=== PATIENT | female | born 1990 | race Two or more races ===

== ENCOUNTER 2020-11-17 11:04 | Inpatient (IN) | payer OTHER ==
[2020-11-17 12:13] VITALS: BMI 24.5
[2020-11-17] MEDS ORDERED: MAGNESIUM HYDROX 2400MG/30ML ORAL SUSPENSION 30 ML CUP PO PRN (12:55)
[2020-11-17] MEDS ORDERED: BISMUTH SUBSALICYLATE 524 MG/30 ML UD PO PRN (12:55)
[2020-11-17] MEDS ORDERED: NICOTINE POLACRILEX 2 MG GUM BUC PRN (12:55)
[2020-11-17] MEDS ORDERED: MENTHOL/PHENOL 1 EACH UD MM PRN (12:55)
[2020-11-17] MEDS ORDERED: LORazepam 1 MG TABLET PO PRN (12:55)
[2020-11-17] MEDS ORDERED: IBUPROFEN 400 MG TABLET (FP) PO PRN (12:55)
[2020-11-17] MEDS ORDERED: MAGNESIUM CITRATE 300 ML BOTTLE PO PRN (12:55)
[2020-11-17] MEDS ORDERED: MAG HYDROX/AL HYDROX/SIMETH 30 ML UNIT-DOSE CUP PO PRN (12:55)
[2020-11-17] MEDS ORDERED: METHOCARBAMOL 500 MG TABLET PO PRN (12:55)
[2020-11-17] MEDS ORDERED: ONDANSETRON *ODT* 4 MG TABLET SL PRN (12:55)
[2020-11-17] MEDS ORDERED: ACETAMINOPHEN 325 MG TABLET (FP) PO PRN ×2 (12:55)
[2020-11-17] MEDS ORDERED: LISINOPRIL 10 MG TABLET PO ONE (13:30)
[2020-11-17] MEDS: NICOTINE 14 MG/24 HOURS TOPICAL PATCH TD SCH (13:54)
[2020-11-17] MEDS: hydrOXYzine PAMOATE 25 MG CAPSULE (FP) PO SCH ×3 (14:00→23:04)
[2020-11-17 17:14] LABS: HEMATOCRIT 32.4 % (32.4-45.2); HEMOGLOBIN 10.6 GM/dL (10.7-15.3); MCH 31.6 pg (25.7-33.7); MCHC 32.7 g/dl (32.0-36.0); MEAN CELL VOLUME 96.6 fl (80-96); MEAN PLT VOLUME 8.2 fl (7.5-11.1); PLATELET COUNT 256 K/MM3 (134-434); RBC 3.36 M/mm3 (3.60-5.2); RDW 17.2 % (11.6-15.6); WHITE BLOOD COUNT 4.5 K/mm3 (4.0-10.0)
[2020-11-17 17:20] LABS: POTASSIUM 3.3 mmol/L (3.5-5.1)
[2020-11-17 17:26] LABS: ALBUMIN 3.2 g/dl (3.4-5.0); CALCIUM 7.9 mg/dL (8.5-10.1)
[2020-11-17 17:27] LABS: BLOOD UREA NITROGEN 7.8 mg/dL (7-18)
[2020-11-17 17:30] LABS: BILIRUBIN,TOTAL 0.5 mg/dL (0.2-1); CREATININE 0.7 mg/dL (0.55-1.3); TOT PROT 6.6 g/dl (6.4-8.2)
[2020-11-17] MEDS: LORazepam 2 MG TABLET PO SCH ×2 (17:49→23:03)
[2020-11-17] MEDS: THIAMINE HCL 100 MG TABLET (FP) PO SCH (23:03)
[2020-11-17] MEDS: MELATONIN 5 MG TABLETS PO SCH (23:04)
[2020-11-18] MEDS: LORazepam 2 MG TABLET PO SCH ×4 (05:46→22:24)
[2020-11-18] MEDS: hydrOXYzine PAMOATE 25 MG CAPSULE (FP) PO SCH ×5 (05:47→22:24)
[2020-11-18] MEDS: PRENATAL VITAMINS W/ FOLIC ACID TABLET (FP) PO SCH (10:28)
[2020-11-18] MEDS: NICOTINE 14 MG/24 HOURS TOPICAL PATCH TD SCH (10:28)
[2020-11-18] MEDS ORDERED: PNEUMOC 13-VAL CONJ-DIP CRM/PF 0.5 ML DISP.SYRIN IM ONE (12:00)
[2020-11-18] MEDS ORDERED: PNEUMOCOCCAL 23 VACCINE 0.5 ML VIAL IM ONE (12:00)
[2020-11-18] MEDS ORDERED: FLU VACCINE (FLULAVAL) PF 60 MCG/0.5 ML SYRINGE 2020-2021 IM ONE (12:00)
[2020-11-18] MEDS ORDERED: POTASSIUM CHLORIDE ORAL LIQUID 20 MEQ/15 ML PO ONE ×3 (13:45→17:30)
[2020-11-18] MEDS: FERROUS SO4 325 MG TABLET (FP) PO SCH (14:21)
[2020-11-18] MEDS: THIAMINE HCL 100 MG TABLET (FP) PO SCH (22:24)
[2020-11-18] MEDS: MELATONIN 5 MG TABLETS PO SCH (22:24)
[2020-11-19] MEDS: LORazepam 1 MG TABLET PO SCH ×4 (05:52→22:25)
[2020-11-19] MEDS: hydrOXYzine PAMOATE 25 MG CAPSULE (FP) PO SCH ×5 (05:53→22:25)
[2020-11-19] MEDS: FERROUS SO4 325 MG TABLET (FP) PO SCH (07:16)
[2020-11-19] MEDS: PRENATAL VITAMINS W/ FOLIC ACID TABLET (FP) PO SCH (10:38)
[2020-11-19] MEDS: NICOTINE 14 MG/24 HOURS TOPICAL PATCH TD SCH (10:47)
[2020-11-19] MEDS: MELATONIN 5 MG TABLETS PO SCH (22:24)
[2020-11-19] MEDS: THIAMINE HCL 100 MG TABLET (FP) PO SCH (22:24)
[2020-11-20] MEDS ORDERED: LORazepam 0.5 MG TABLET PO PRN
[2020-11-20] MEDS: LORazepam 0.5 MG TABLET PO SCH ×4 (06:24→22:14)
[2020-11-20] MEDS: hydrOXYzine PAMOATE 25 MG CAPSULE (FP) PO SCH ×5 (06:25→22:14)
[2020-11-20] MEDS: FERROUS SO4 325 MG TABLET (FP) PO SCH (07:06)
[2020-11-20] MEDS: PRENATAL VITAMINS W/ FOLIC ACID TABLET (FP) PO SCH (10:31)
[2020-11-20] MEDS: NICOTINE 14 MG/24 HOURS TOPICAL PATCH TD SCH (11:03)
[2020-11-20] MEDS: MELATONIN 5 MG TABLETS PO SCH (22:14)
[2020-11-20] MEDS: THIAMINE HCL 100 MG TABLET (FP) PO SCH (22:14)
[2020-11-21] MEDS ORDERED: LORazepam 0.5 MG TABLET PO ONE (05:00)
[2020-11-21] MEDS: hydrOXYzine PAMOATE 25 MG CAPSULE (FP) PO SCH ×3 (07:08→13:03)
[2020-11-21] MEDS: FERROUS SO4 325 MG TABLET (FP) PO SCH (08:30)
[2020-11-21] MEDS: PRENATAL VITAMINS W/ FOLIC ACID TABLET (FP) PO SCH (10:33)
[2020-11-21] MEDS: NICOTINE 14 MG/24 HOURS TOPICAL PATCH TD SCH (10:33)
[2020-11-21 14:16] VITALS: BP 145/79; PULSE 73; TEMP 97.5
== END 2020-11-21 14:47 | disposition other institution (70) | DRG 774 ==
LOC: YASAS 11:04 → Y6N 12:27
PROVIDERS: ADMIT Allergy & Immunology; ATTEND Allergy & Immunology
PROC: HZ2ZZZZ Detoxification Services for Substance Abuse Treatment (ICD-10-PCS; principal; 2020-11-17)
DX: F10.230 Alcohol dependence with withdrawal, uncomplicated (principal); F14.20 Cocaine dependence, uncomplicated; F17.210 Nicotine dependence, cigarettes, uncomplicated; F10.24 Alcohol dependence with alcohol-induced mood disorder; D64.9 Anemia, unspecified; E83.51 Hypocalcemia; G47.00 Insomnia, unspecified; I10 Essential (primary) hypertension; Z91.5 Personal history of self-harm
CPT/HCPCS: 36415; 80053; 81025; 84132; 85027; 86780; 87389; 90732; 93005; 93010; C9803; G0008; G0009; Q2036; U0003

== ENCOUNTER 2020-11-21 15:03 | Inpatient (IN) | payer OTHER ==
[2020-11-21] MEDS ORDERED: MAGNESIUM CITRATE 300 ML BOTTLE PO PRN (15:34)
[2020-11-21] MEDS ORDERED: MAGNESIUM HYDROX 2400MG/30ML ORAL SUSPENSION 30 ML CUP PO PRN (15:34)
[2020-11-21] MEDS ORDERED: NICOTINE POLACRILEX 2 MG GUM BUC PRN (15:34)
[2020-11-21] MEDS ORDERED: ACETAMINOPHEN 325 MG TABLET (FP) PO PRN (15:34)
[2020-11-21] MEDS ORDERED: IBUPROFEN 400 MG TABLET (FP) PO PRN (15:34)
[2020-11-21] MEDS ORDERED: LOPERAMIDE HCL 2 MG CAPSULE PO PRN (15:34)
[2020-11-21] MEDS ORDERED: MAG HYDROX/AL HYDROX/SIMETH 30 ML UNIT-DOSE CUP PO PRN (15:34)
[2020-11-21] MEDS ORDERED: MENTHOL/PHENOL 1 EACH UD MM PRN (15:34)
[2020-11-21] MEDS: THIAMINE HCL 100 MG TABLET (FP) PO SCH (21:50)
[2020-11-21] MEDS: MELATONIN 5 MG TABLETS PO SCH (21:50)
[2020-11-21] MEDS: CALCIUM 500MG/VIT-D 200 UNITS COMBO TABLET (FP) PO SCH (21:50)
[2020-11-22] MEDS: PRENATAL VITAMINS W/ FOLIC ACID TABLET (FP) PO SCH (10:14)
[2020-11-22] MEDS: CALCIUM 500MG/VIT-D 200 UNITS COMBO TABLET (FP) PO SCH ×2 (10:14→21:16)
[2020-11-22] MEDS: NICOTINE 14 MG/24 HOURS TOPICAL PATCH TD SCH (10:15)
[2020-11-22] MEDS: THIAMINE HCL 100 MG TABLET (FP) PO SCH (21:16)
[2020-11-22] MEDS: MELATONIN 5 MG TABLETS PO SCH (21:16)
[2020-11-23] MEDS: NICOTINE 14 MG/24 HOURS TOPICAL PATCH TD SCH (10:38)
[2020-11-23] MEDS: PRENATAL VITAMINS W/ FOLIC ACID TABLET (FP) PO SCH (10:38)
[2020-11-23] MEDS: CALCIUM 500MG/VIT-D 200 UNITS COMBO TABLET (FP) PO SCH ×2 (10:38→21:30)
[2020-11-23] MEDS: MELATONIN 5 MG TABLETS PO SCH (21:30)
[2020-11-23] MEDS: THIAMINE HCL 100 MG TABLET (FP) PO SCH (21:30)
[2020-11-24] MEDS: NICOTINE 14 MG/24 HOURS TOPICAL PATCH TD SCH (10:58)
[2020-11-24] MEDS: CALCIUM 500MG/VIT-D 200 UNITS COMBO TABLET (FP) PO SCH ×2 (10:58→21:01)
[2020-11-24] MEDS: PRENATAL VITAMINS W/ FOLIC ACID TABLET (FP) PO SCH (10:59)
[2020-11-24] MEDS: THIAMINE HCL 100 MG TABLET (FP) PO SCH (21:01)
[2020-11-24] MEDS: MELATONIN 5 MG TABLETS PO SCH (21:01)
[2020-11-25] MEDS: CALCIUM 500MG/VIT-D 200 UNITS COMBO TABLET (FP) PO SCH ×2 (10:55→21:19)
[2020-11-25] MEDS: PRENATAL VITAMINS W/ FOLIC ACID TABLET (FP) PO SCH (10:55)
[2020-11-25] MEDS: NICOTINE 14 MG/24 HOURS TOPICAL PATCH TD SCH (10:55)
[2020-11-25] MEDS: MELATONIN 5 MG TABLETS PO SCH (21:19)
[2020-11-25] MEDS: THIAMINE HCL 100 MG TABLET (FP) PO SCH (21:19)
[2020-11-26] MEDS: PRENATAL VITAMINS W/ FOLIC ACID TABLET (FP) PO SCH (10:32)
[2020-11-26] MEDS: CALCIUM 500MG/VIT-D 200 UNITS COMBO TABLET (FP) PO SCH (10:32)
[2020-11-26] MEDS: NICOTINE 14 MG/24 HOURS TOPICAL PATCH TD SCH (10:33)
[2020-11-26] MEDS: MELATONIN 5 MG TABLETS PO SCH (21:27)
[2020-11-26] MEDS: THIAMINE HCL 100 MG TABLET (FP) PO SCH (21:27)
[2020-11-27] MEDS: PRENATAL VITAMINS W/ FOLIC ACID TABLET (FP) PO SCH (10:22)
[2020-11-27] MEDS: NICOTINE 14 MG/24 HOURS TOPICAL PATCH TD SCH (10:22)
[2020-11-27] MEDS: THIAMINE HCL 100 MG TABLET (FP) PO SCH (21:16)
[2020-11-27] MEDS: MELATONIN 5 MG TABLETS PO SCH (21:16)
[2020-11-28] MEDS: NICOTINE 14 MG/24 HOURS TOPICAL PATCH TD SCH (10:39)
[2020-11-28] MEDS: PRENATAL VITAMINS W/ FOLIC ACID TABLET (FP) PO SCH (10:39)
[2020-11-28] MEDS: MELATONIN 5 MG TABLETS PO SCH (21:13)
[2020-11-28] MEDS: THIAMINE HCL 100 MG TABLET (FP) PO SCH (21:13)
[2020-11-29] MEDS ORDERED: PT OWN MED DRAWER 7, Y5N ONE (08:48)
[2020-11-29] MEDS: PRENATAL VITAMINS W/ FOLIC ACID TABLET (FP) PO SCH (10:22)
[2020-11-29] MEDS: NICOTINE 14 MG/24 HOURS TOPICAL PATCH TD SCH (10:22)
[2020-11-29] MEDS: MELATONIN 5 MG TABLETS PO SCH (21:19)
[2020-11-29] MEDS: THIAMINE HCL 100 MG TABLET (FP) PO SCH (21:19)
[2020-11-30] MEDS: PRENATAL VITAMINS W/ FOLIC ACID TABLET (FP) PO SCH (10:40)
[2020-11-30] MEDS: NICOTINE 14 MG/24 HOURS TOPICAL PATCH TD SCH (10:40)
[2020-11-30] MEDS: THIAMINE HCL 100 MG TABLET (FP) PO SCH (21:24)
[2020-11-30] MEDS: MELATONIN 5 MG TABLETS PO SCH (21:24)
[2020-12-01] MEDS: PRENATAL VITAMINS W/ FOLIC ACID TABLET (FP) PO SCH (10:15)
[2020-12-01] MEDS: NICOTINE 14 MG/24 HOURS TOPICAL PATCH TD SCH (10:15)
[2020-12-01] MEDS: THIAMINE HCL 100 MG TABLET (FP) PO SCH (21:23)
[2020-12-01] MEDS: MELATONIN 5 MG TABLETS PO SCH (21:23)
[2020-12-02] MEDS: NICOTINE 14 MG/24 HOURS TOPICAL PATCH TD SCH (10:16)
[2020-12-02] MEDS: PRENATAL VITAMINS W/ FOLIC ACID TABLET (FP) PO SCH (10:16)
[2020-12-02] MEDS: THIAMINE HCL 100 MG TABLET (FP) PO SCH (21:16)
[2020-12-02] MEDS: MELATONIN 5 MG TABLETS PO SCH (21:16)
[2020-12-03] MEDS: NICOTINE 14 MG/24 HOURS TOPICAL PATCH TD SCH (10:28)
[2020-12-03] MEDS: PRENATAL VITAMINS W/ FOLIC ACID TABLET (FP) PO SCH (10:28)
[2020-12-03] MEDS: MELATONIN 5 MG TABLETS PO SCH (21:29)
[2020-12-03] MEDS: THIAMINE HCL 100 MG TABLET (FP) PO SCH (21:29)
[2020-12-04] MEDS: PRENATAL VITAMINS W/ FOLIC ACID TABLET (FP) PO SCH (11:12)
[2020-12-04] MEDS: NICOTINE 14 MG/24 HOURS TOPICAL PATCH TD SCH (11:12)
[2020-12-04 20:44] VITALS: TEMP 96.8
[2020-12-04 20:51] VITALS: BP 162/96; PULSE 94
== END 2020-12-04 21:10 | disposition left against medical advice (07) | DRG 770 ==
LOC: YASAS 15:03 → Y3W 15:05
PROVIDERS: ADMIT Allergy & Immunology; ATTEND Allergy & Immunology
PROC: HZ42ZZZ Group Counseling for Substance Abuse Treatment, Cognitive-Behavioral (ICD-10-PCS; principal; 2020-11-21)
DX: F10.20 Alcohol dependence, uncomplicated (principal); F14.20 Cocaine dependence, uncomplicated; F17.210 Nicotine dependence, cigarettes, uncomplicated; F10.24 Alcohol dependence with alcohol-induced mood disorder; I10 Essential (primary) hypertension
CPT/HCPCS: 36415; 87389; C9803; U0003

== ENCOUNTER 2020-12-25 13:40 | Inpatient (IN) | payer OTHER ==
[2020-12-25] MEDS ORDERED: cloNIDine HCL 0.1 MG TABLET PO ONE (19:13)
[2020-12-25] MEDS ORDERED: NICOTINE POLACRILEX 2 MG GUM BUC PRN (19:16)
[2020-12-25] MEDS ORDERED: ONDANSETRON *ODT* 4 MG TABLET SL PRN (19:16)
[2020-12-25] MEDS ORDERED: IBUPROFEN 400 MG TABLET (FP) PO PRN (19:16)
[2020-12-25] MEDS ORDERED: chlordiazePOXIDE HCL 25 MG CAPSULE PO PRN (19:16)
[2020-12-25] MEDS ORDERED: MAGNESIUM HYDROX 2400MG/30ML ORAL SUSPENSION 30 ML CUP PO PRN (19:16)
[2020-12-25] MEDS ORDERED: chlordiazePOXIDE HCL 25 MG CAPSULE PO ONE ×2 (19:16→21:20)
[2020-12-25] MEDS ORDERED: ACETAMINOPHEN 325 MG TABLET (FP) PO PRN ×2 (19:16)
[2020-12-25] MEDS ORDERED: MAGNESIUM CITRATE 300 ML BOTTLE PO PRN (19:16)
[2020-12-25] MEDS ORDERED: MAG HYDROX/AL HYDROX/SIMETH 30 ML UNIT-DOSE CUP PO PRN (19:16)
[2020-12-25] MEDS ORDERED: MENTHOL/PHENOL 1 EACH UD MM PRN (19:16)
[2020-12-25] MEDS ORDERED: cloNIDine HCL 0.1 MG TABLET ONE (21:15)
[2020-12-25] MEDS ORDERED: chlordiazePOXIDE HCL 25 MG CAPSULE ONE ×2 (21:15→21:18)
[2020-12-26] MEDS: chlordiazePOXIDE HCL 25 MG CAPSULE PO SCH ×5 (00:21→22:36)
[2020-12-26] MEDS: THIAMINE HCL 100 MG TABLET (FP) PO SCH ×2 (01:48→22:36)
[2020-12-26] MEDS: MELATONIN 5 MG TABLETS PO SCH ×2 (01:51→22:36)
[2020-12-26] MEDS: BISMUTH SUBSALICYLATE 524 MG/30 ML UD PO PRN (09:29)
[2020-12-26] MEDS: PRENATAL VITAMINS W/ FOLIC ACID TABLET (FP) PO SCH (10:21)
[2020-12-26] MEDS: NICOTINE 14 MG/24 HOURS TOPICAL PATCH TD SCH (10:21)
[2020-12-26] MEDS: amLODIPine BESYLATE 5 MG TABLET (FP) PO SCH (10:21)
[2020-12-26 10:30] LABS: POTASSIUM 3.4 mmol/L (3.5-5.1)
[2020-12-26 10:31] LABS: HEMATOCRIT 31.4 % (32.4-45.2); HEMOGLOBIN 10.3 GM/dL (10.7-15.3); MCH 29.1 pg (25.7-33.7); MCHC 32.9 g/dl (32.0-36.0); MEAN CELL VOLUME 88.6 fl (80-96); MEAN PLT VOLUME 7.9 fl (7.5-11.1); PLATELET COUNT 220 K/MM3 (134-434); RBC 3.55 M/mm3 (3.60-5.2); RDW 17.4 % (11.6-15.6); WHITE BLOOD COUNT 4.2 K/mm3 (4.0-10.0)
[2020-12-26 10:38] LABS: CALCIUM 8.5 mg/dL (8.5-10.1)
[2020-12-26 10:39] LABS: ALBUMIN 3.4 g/dl (3.4-5.0); BLOOD UREA NITROGEN 12.4 mg/dL (7-18)
[2020-12-26 10:41] LABS: CREATININE 0.8 mg/dL (0.55-1.3)
[2020-12-26 10:43] LABS: BILIRUBIN,TOTAL 0.7 mg/dL (0.2-1); TOT PROT 7.2 g/dl (6.4-8.2)
[2020-12-26] MEDS ORDERED: POTASSIUM CHLORIDE TABS 20 MEQ TABLET.ER (FP) PO ONE (13:32)
[2020-12-27] MEDS: chlordiazePOXIDE HCL 25 MG CAPSULE PO SCH ×4 (05:41→22:55)
[2020-12-27] MEDS: PRENATAL VITAMINS W/ FOLIC ACID TABLET (FP) PO SCH (10:28)
[2020-12-27] MEDS: amLODIPine BESYLATE 5 MG TABLET (FP) PO SCH (10:29)
[2020-12-27] MEDS: BISMUTH SUBSALICYLATE 524 MG/30 ML UD PO PRN (10:30)
[2020-12-27] MEDS: NICOTINE 14 MG/24 HOURS TOPICAL PATCH TD SCH (10:30)
[2020-12-27] MEDS: METHOCARBAMOL 500 MG TABLET PO PRN (18:15)
[2020-12-27] MEDS: THIAMINE HCL 100 MG TABLET (FP) PO SCH (22:54)
[2020-12-27] MEDS: MELATONIN 5 MG TABLETS PO SCH (22:54)
[2020-12-28] MEDS ORDERED: chlordiazePOXIDE HCL 10 MG CAPSULE PO PRN
[2020-12-28] MEDS: chlordiazePOXIDE HCL 10 MG CAPSULE PO SCH ×4 (06:08→22:36)
[2020-12-28] MEDS: PRENATAL VITAMINS W/ FOLIC ACID TABLET (FP) PO SCH (10:22)
[2020-12-28] MEDS: amLODIPine BESYLATE 5 MG TABLET (FP) PO SCH (10:23)
[2020-12-28] MEDS: NICOTINE 14 MG/24 HOURS TOPICAL PATCH TD SCH (10:26)
[2020-12-28] MEDS: FERROUS SO4 325 MG TABLET (FP) PO SCH ×2 (12:01→18:12)
[2020-12-28 22:18] LABS: URINE APPEARANCE CLEAR; URINE BILIRUBIN NEGATIVE (NEGATIVE); URINE COLOR YELLOW; URINE GLUCOSE (UA) NEGATIVE (NEGATIVE); URINE KETONE NEGATIVE (NEGATIVE); URINE LEUK ESTERASE NEGATIVE (NEGATIVE); URINE NITRITE NEGATIVE (NEGATIVE); URINE PROTEIN NEGATIVE (NEGATIVE); URINE UROBILINOGEN 0.2 mg/dL (0.2-1.0)
[2020-12-28] MEDS: MELATONIN 5 MG TABLETS PO SCH (22:36)
[2020-12-28] MEDS: METHOCARBAMOL 500 MG TABLET PO PRN (22:36)
[2020-12-28] MEDS: THIAMINE HCL 100 MG TABLET (FP) PO SCH (22:36)
[2020-12-29] MEDS: chlordiazePOXIDE HCL 10 MG CAPSULE PO SCH ×2 (05:36→17:54)
[2020-12-29] MEDS: FERROUS SO4 325 MG TABLET (FP) PO SCH ×3 (07:33→17:54)
[2020-12-29] MEDS ORDERED: MELATONIN 5 MG TABLETS PO SCH (09:21)
[2020-12-29] MEDS: PRENATAL VITAMINS W/ FOLIC ACID TABLET (FP) PO SCH (09:57)
[2020-12-29] MEDS: NICOTINE 14 MG/24 HOURS TOPICAL PATCH TD SCH (09:58)
[2020-12-29] MEDS: amLODIPine BESYLATE 5 MG TABLET (FP) PO SCH (09:58)
[2020-12-29] MEDS: METHOCARBAMOL 500 MG TABLET PO PRN ×2 (09:58→22:31)
[2020-12-29 12:06] LABS: BASO % 0.4 % (0-2.0); EOS % 0.8 % (0-4.5); HEMATOCRIT 31.2 % (32.4-45.2); HEMOGLOBIN 10.4 GM/dL (10.7-15.3); LYMPH % 33.2 % (8-40); MCH 29.6 pg (25.7-33.7); MCHC 33.3 g/dl (32.0-36.0); MEAN PLT VOLUME 7.9 fl (7.5-11.1); MONO % 8.6 % (3.8-10.2); PLATELET COUNT 247 K/MM3 (134-434); RBC 3.51 M/mm3 (3.60-5.2); RDW 18.2 % (11.6-15.6); WHITE BLOOD COUNT 7.7 K/mm3 (4.0-10.0)
[2020-12-29] MEDS: THIAMINE HCL 100 MG TABLET (FP) PO SCH (22:30)
[2020-12-30] MEDS ORDERED: chlordiazePOXIDE HCL 10 MG CAPSULE PO ONE (05:00)
[2020-12-30] MEDS: METHOCARBAMOL 500 MG TABLET PO PRN (05:40)
[2020-12-30] MEDS: FERROUS SO4 325 MG TABLET (FP) PO SCH ×2 (07:18→11:46)
[2020-12-30] MEDS: NICOTINE 14 MG/24 HOURS TOPICAL PATCH TD SCH (09:37)
[2020-12-30] MEDS: PRENATAL VITAMINS W/ FOLIC ACID TABLET (FP) PO SCH (09:37)
[2020-12-30] MEDS: amLODIPine BESYLATE 5 MG TABLET (FP) PO SCH (09:37)
[2020-12-30 13:06] VITALS: BP 131/81; PULSE 100; TEMP 97
== END 2020-12-30 14:17 | disposition other institution (70) | DRG 774 ==
LOC: YASAS 13:40 → Y3N 20:37
PROVIDERS: ADMIT Allergy & Immunology; ATTEND Allergy & Immunology
PROC: HZ2ZZZZ Detoxification Services for Substance Abuse Treatment (ICD-10-PCS; principal; 2020-12-25)
DX: F10.230 Alcohol dependence with withdrawal, uncomplicated (principal); F14.20 Cocaine dependence, uncomplicated; F17.210 Nicotine dependence, cigarettes, uncomplicated; F19.24 Other psychoactive substance dependence with psychoactive substance-induced mood disorder; F10.24 Alcohol dependence with alcohol-induced mood disorder; F32.9 Major depressive disorder, single episode, unspecified; D64.9 Anemia, unspecified; E87.6 Hypokalemia; I10 Essential (primary) hypertension
CPT/HCPCS: 36415; 80053; 81003; 84132; 85025; 85027; 86780; 93005; 93010; C9803; J0735; U0003

== ENCOUNTER 2020-12-30 14:00 | Inpatient (IN) | payer OTHER ==
[2020-12-30] MEDS ORDERED: P-EPHED 60MG/TRIPROLIDI 2.5MG TABLET PO PRN (15:20)
[2020-12-30] MEDS ORDERED: IBUPROFEN 400 MG TABLET (FP) PO PRN (15:20)
[2020-12-30] MEDS ORDERED: MENTHOL/PHENOL 1 EACH UD MM PRN (15:20)
[2020-12-30] MEDS ORDERED: ACETAMINOPHEN 325 MG TABLET (FP) PO PRN (15:20)
[2020-12-30] MEDS ORDERED: MAGNESIUM HYDROX 2400MG/30ML ORAL SUSPENSION 30 ML CUP PO PRN (15:20)
[2020-12-30] MEDS ORDERED: MAGNESIUM CITRATE 300 ML BOTTLE PO PRN (15:20)
[2020-12-30] MEDS ORDERED: MAG HYDROX/AL HYDROX/SIMETH 30 ML UNIT-DOSE CUP PO PRN (15:20)
[2020-12-30] MEDS ORDERED: LOPERAMIDE HCL 2 MG CAPSULE PO PRN (15:20)
[2020-12-30] MEDS ORDERED: guaiFENesin 200 MG/10 ML 10 ML UNIT-DOSE CUPS PO PRN (15:20)
[2020-12-30] MEDS: FERROUS SO4 325 MG TABLET (FP) PO SCH (21:15)
[2020-12-30] MEDS: MELATONIN 5 MG TABLETS PO SCH (21:15)
[2020-12-30] MEDS: THIAMINE HCL 100 MG TABLET (FP) PO SCH (21:15)
[2020-12-30] MEDS: TOLNAFTATE 1% CREAM 15 GM TUBE TP SCH (21:15)
[2020-12-30] MEDS: hydrOXYzine PAMOATE 25 MG CAPSULE (FP) PO PRN (21:15)
[2020-12-31] MEDS: FERROUS SO4 325 MG TABLET (FP) PO SCH ×3 (06:31→21:18)
[2020-12-31] MEDS: PRENATAL VITAMINS W/ FOLIC ACID TABLET (FP) PO SCH (10:02)
[2020-12-31] MEDS: NICOTINE 14 MG/24 HOURS TOPICAL PATCH TD SCH (10:02)
[2020-12-31] MEDS: amLODIPine BESYLATE 5 MG TABLET (FP) PO SCH (10:02)
[2020-12-31] MEDS: TOLNAFTATE 1% CREAM 15 GM TUBE TP SCH ×2 (10:02→21:20)
[2020-12-31] MEDS: hydrOXYzine PAMOATE 25 MG CAPSULE (FP) PO PRN ×2 (11:53→21:18)
[2020-12-31] MEDS: MELATONIN 5 MG TABLETS PO SCH (21:18)
[2020-12-31] MEDS: THIAMINE HCL 100 MG TABLET (FP) PO SCH (21:18)
[2020-12-31] MEDS ORDERED: PT OWN MED DRAWER 7, Y5N ONE (21:19)
[2020-12-31] MEDS: traZODone HCL 50 MG TABLET (FP) PO SCH (21:20)
[2021-01-01] MEDS: FERROUS SO4 325 MG TABLET (FP) PO SCH ×3 (06:19→22:00)
[2021-01-01] MEDS: PRENATAL VITAMINS W/ FOLIC ACID TABLET (FP) PO SCH (09:56)
[2021-01-01] MEDS: amLODIPine BESYLATE 5 MG TABLET (FP) PO SCH (09:56)
[2021-01-01] MEDS: NICOTINE 14 MG/24 HOURS TOPICAL PATCH TD SCH (09:57)
[2021-01-01] MEDS: TOLNAFTATE 1% CREAM 15 GM TUBE TP SCH ×2 (09:59→22:01)
[2021-01-01] MEDS: THIAMINE HCL 100 MG TABLET (FP) PO SCH (22:00)
[2021-01-01] MEDS: traZODone HCL 50 MG TABLET (FP) PO SCH (22:00)
[2021-01-01] MEDS: MELATONIN 5 MG TABLETS PO SCH (22:00)
[2021-01-01] MEDS: hydrOXYzine PAMOATE 25 MG CAPSULE (FP) PO PRN (22:00)
[2021-01-02] MEDS: FERROUS SO4 325 MG TABLET (FP) PO SCH ×3 (06:41→21:01)
[2021-01-02] MEDS: hydrOXYzine PAMOATE 25 MG CAPSULE (FP) PO PRN (09:50)
[2021-01-02] MEDS: amLODIPine BESYLATE 5 MG TABLET (FP) PO SCH (09:50)
[2021-01-02] MEDS: NICOTINE 14 MG/24 HOURS TOPICAL PATCH TD SCH (09:50)
[2021-01-02] MEDS: PRENATAL VITAMINS W/ FOLIC ACID TABLET (FP) PO SCH (09:50)
[2021-01-02] MEDS: TOLNAFTATE 1% CREAM 15 GM TUBE TP SCH ×2 (09:51→21:02)
[2021-01-02] MEDS: NICOTINE POLACRILEX 2 MG GUM BUC PRN (09:51)
[2021-01-02] MEDS: traZODone HCL 50 MG TABLET (FP) PO SCH (21:01)
[2021-01-02] MEDS: THIAMINE HCL 100 MG TABLET (FP) PO SCH (21:01)
[2021-01-02] MEDS: MELATONIN 5 MG TABLETS PO SCH (21:05)
[2021-01-03] MEDS: hydrOXYzine PAMOATE 25 MG CAPSULE (FP) PO PRN ×4 (06:54→21:35)
[2021-01-03] MEDS: FERROUS SO4 325 MG TABLET (FP) PO SCH ×3 (07:23→21:35)
[2021-01-03] MEDS: PRENATAL VITAMINS W/ FOLIC ACID TABLET (FP) PO SCH (09:38)
[2021-01-03] MEDS: amLODIPine BESYLATE 5 MG TABLET (FP) PO SCH (09:38)
[2021-01-03] MEDS: NICOTINE 14 MG/24 HOURS TOPICAL PATCH TD SCH (09:39)
[2021-01-03] MEDS: TOLNAFTATE 1% CREAM 15 GM TUBE TP SCH ×2 (10:15→22:13)
[2021-01-03] MEDS: THIAMINE HCL 100 MG TABLET (FP) PO SCH (21:35)
[2021-01-03] MEDS: MELATONIN 5 MG TABLETS PO SCH (21:35)
[2021-01-03] MEDS: traZODone HCL 50 MG TABLET (FP) PO SCH (21:35)
[2021-01-04] MEDS: FERROUS SO4 325 MG TABLET (FP) PO SCH ×3 (07:53→21:51)
[2021-01-04] MEDS: PRENATAL VITAMINS W/ FOLIC ACID TABLET (FP) PO SCH (09:58)
[2021-01-04] MEDS: TOLNAFTATE 1% CREAM 15 GM TUBE TP SCH ×2 (09:58→22:02)
[2021-01-04] MEDS: amLODIPine BESYLATE 5 MG TABLET (FP) PO SCH (09:58)
[2021-01-04] MEDS: hydrOXYzine PAMOATE 25 MG CAPSULE (FP) PO PRN ×3 (09:58→21:51)
[2021-01-04] MEDS: NICOTINE 14 MG/24 HOURS TOPICAL PATCH TD SCH (09:58)
[2021-01-04] MEDS: traZODone HCL 50 MG TABLET (FP) PO SCH (21:51)
[2021-01-04] MEDS: MELATONIN 5 MG TABLETS PO SCH (21:51)
[2021-01-04] MEDS: THIAMINE HCL 100 MG TABLET (FP) PO SCH (21:51)
[2021-01-05] MEDS: FERROUS SO4 325 MG TABLET (FP) PO SCH ×3 (06:43→21:32)
[2021-01-05] MEDS: NICOTINE 14 MG/24 HOURS TOPICAL PATCH TD SCH (10:45)
[2021-01-05] MEDS: PRENATAL VITAMINS W/ FOLIC ACID TABLET (FP) PO SCH (10:45)
[2021-01-05] MEDS: amLODIPine BESYLATE 5 MG TABLET (FP) PO SCH (10:45)
[2021-01-05] MEDS: TOLNAFTATE 1% CREAM 15 GM TUBE TP SCH ×2 (10:46→22:49)
[2021-01-05] MEDS: hydrOXYzine PAMOATE 25 MG CAPSULE (FP) PO PRN ×3 (10:46→21:32)
[2021-01-05] MEDS: THIAMINE HCL 100 MG TABLET (FP) PO SCH (21:32)
[2021-01-05] MEDS: traZODone HCL 50 MG TABLET (FP) PO SCH (21:32)
[2021-01-05] MEDS: MELATONIN 5 MG TABLETS PO SCH (21:33)
[2021-01-06] MEDS: FERROUS SO4 325 MG TABLET (FP) PO SCH ×3 (06:36→21:16)
[2021-01-06] MEDS: hydrOXYzine PAMOATE 25 MG CAPSULE (FP) PO PRN ×3 (06:36→21:17)
[2021-01-06] MEDS: NICOTINE 14 MG/24 HOURS TOPICAL PATCH TD SCH (10:49)
[2021-01-06] MEDS: PRENATAL VITAMINS W/ FOLIC ACID TABLET (FP) PO SCH (10:49)
[2021-01-06] MEDS: amLODIPine BESYLATE 5 MG TABLET (FP) PO SCH (10:49)
[2021-01-06] MEDS: TOLNAFTATE 1% CREAM 15 GM TUBE TP SCH ×2 (10:51→21:23)
[2021-01-06] MEDS: NICOTINE POLACRILEX 2 MG GUM BUC PRN (10:52)
[2021-01-06] MEDS: THIAMINE HCL 100 MG TABLET (FP) PO SCH (21:16)
[2021-01-06] MEDS: traZODone HCL 50 MG TABLET (FP) PO SCH (21:16)
[2021-01-06] MEDS: MELATONIN 5 MG TABLETS PO SCH (21:23)
[2021-01-07] MEDS: FERROUS SO4 325 MG TABLET (FP) PO SCH ×3 (06:26→21:46)
[2021-01-07] MEDS: amLODIPine BESYLATE 5 MG TABLET (FP) PO SCH (10:38)
[2021-01-07] MEDS: PRENATAL VITAMINS W/ FOLIC ACID TABLET (FP) PO SCH (10:38)
[2021-01-07] MEDS: NICOTINE 14 MG/24 HOURS TOPICAL PATCH TD SCH (10:38)
[2021-01-07] MEDS: hydrOXYzine PAMOATE 25 MG CAPSULE (FP) PO PRN ×3 (10:39→21:45)
[2021-01-07] MEDS: TOLNAFTATE 1% CREAM 15 GM TUBE TP SCH (10:40)
[2021-01-07] MEDS: NICOTINE POLACRILEX 2 MG GUM BUC PRN (12:49)
[2021-01-07] MEDS: MELATONIN 5 MG TABLETS PO SCH (21:46)
[2021-01-07] MEDS: THIAMINE HCL 100 MG TABLET (FP) PO SCH (21:46)
[2021-01-07] MEDS: traZODone HCL 50 MG TABLET (FP) PO SCH (21:46)
[2021-01-08] MEDS: FERROUS SO4 325 MG TABLET (FP) PO SCH ×3 (06:56→21:27)
[2021-01-08] MEDS: hydrOXYzine PAMOATE 25 MG CAPSULE (FP) PO PRN ×3 (06:57→21:26)
[2021-01-08] MEDS: PRENATAL VITAMINS W/ FOLIC ACID TABLET (FP) PO SCH (10:38)
[2021-01-08] MEDS: NICOTINE 14 MG/24 HOURS TOPICAL PATCH TD SCH (10:38)
[2021-01-08] MEDS: TOLNAFTATE 1% CREAM 15 GM TUBE TP SCH ×3 (10:39→22:03)
[2021-01-08] MEDS: amLODIPine BESYLATE 5 MG TABLET (FP) PO SCH (10:39)
[2021-01-08] MEDS: THIAMINE HCL 100 MG TABLET (FP) PO SCH (21:27)
[2021-01-08] MEDS: traZODone HCL 50 MG TABLET (FP) PO SCH (21:27)
[2021-01-08] MEDS: MELATONIN 5 MG TABLETS PO SCH (21:27)
[2021-01-09] MEDS: FERROUS SO4 325 MG TABLET (FP) PO SCH ×3 (06:48→21:25)
[2021-01-09] MEDS: PRENATAL VITAMINS W/ FOLIC ACID TABLET (FP) PO SCH (10:30)
[2021-01-09] MEDS: hydrOXYzine PAMOATE 25 MG CAPSULE (FP) PO PRN ×3 (10:31→21:24)
[2021-01-09] MEDS: NICOTINE 14 MG/24 HOURS TOPICAL PATCH TD SCH (10:31)
[2021-01-09] MEDS: amLODIPine BESYLATE 5 MG TABLET (FP) PO SCH (10:31)
[2021-01-09] MEDS: TOLNAFTATE 1% CREAM 15 GM TUBE TP SCH ×2 (10:33→21:25)
[2021-01-09] MEDS: THIAMINE HCL 100 MG TABLET (FP) PO SCH (21:24)
[2021-01-09] MEDS: traZODone HCL 50 MG TABLET (FP) PO SCH (21:24)
[2021-01-09] MEDS: MELATONIN 5 MG TABLETS PO SCH (21:25)
[2021-01-10] MEDS: FERROUS SO4 325 MG TABLET (FP) PO SCH ×3 (06:32→21:51)
[2021-01-10] MEDS: amLODIPine BESYLATE 5 MG TABLET (FP) PO SCH (10:38)
[2021-01-10] MEDS: hydrOXYzine PAMOATE 25 MG CAPSULE (FP) PO PRN ×3 (10:38→21:51)
[2021-01-10] MEDS: TOLNAFTATE 1% CREAM 15 GM TUBE TP SCH ×2 (10:38→21:52)
[2021-01-10] MEDS: PRENATAL VITAMINS W/ FOLIC ACID TABLET (FP) PO SCH (10:38)
[2021-01-10] MEDS: NICOTINE 14 MG/24 HOURS TOPICAL PATCH TD SCH (10:39)
[2021-01-10] MEDS: MELATONIN 5 MG TABLETS PO SCH (21:51)
[2021-01-10] MEDS: traZODone HCL 50 MG TABLET (FP) PO SCH (21:51)
[2021-01-10] MEDS: THIAMINE HCL 100 MG TABLET (FP) PO SCH (21:52)
[2021-01-11] MEDS: FERROUS SO4 325 MG TABLET (FP) PO SCH ×3 (06:37→21:20)
[2021-01-11] MEDS: NICOTINE 14 MG/24 HOURS TOPICAL PATCH TD SCH (10:37)
[2021-01-11] MEDS: PRENATAL VITAMINS W/ FOLIC ACID TABLET (FP) PO SCH (10:38)
[2021-01-11] MEDS: amLODIPine BESYLATE 5 MG TABLET (FP) PO SCH (10:38)
[2021-01-11] MEDS: hydrOXYzine PAMOATE 25 MG CAPSULE (FP) PO PRN ×2 (10:38→21:20)
[2021-01-11] MEDS: NICOTINE POLACRILEX 2 MG GUM BUC PRN (10:39)
[2021-01-11] MEDS: TOLNAFTATE 1% CREAM 15 GM TUBE TP SCH ×2 (10:39→22:34)
[2021-01-11] MEDS: MELATONIN 5 MG TABLETS PO SCH (21:19)
[2021-01-11] MEDS: traZODone HCL 50 MG TABLET (FP) PO SCH (21:20)
[2021-01-11] MEDS: THIAMINE HCL 100 MG TABLET (FP) PO SCH (21:20)
[2021-01-12] MEDS: FERROUS SO4 325 MG TABLET (FP) PO SCH ×3 (07:36→21:54)
[2021-01-12] MEDS: PRENATAL VITAMINS W/ FOLIC ACID TABLET (FP) PO SCH (10:49)
[2021-01-12] MEDS: NICOTINE 14 MG/24 HOURS TOPICAL PATCH TD SCH (10:50)
[2021-01-12] MEDS: TOLNAFTATE 1% CREAM 15 GM TUBE TP SCH ×2 (10:51→21:54)
[2021-01-12] MEDS: amLODIPine BESYLATE 5 MG TABLET (FP) PO SCH (10:52)
[2021-01-12] MEDS: NICOTINE POLACRILEX 2 MG GUM BUC PRN (10:53)
[2021-01-12] MEDS: hydrOXYzine PAMOATE 25 MG CAPSULE (FP) PO PRN ×2 (13:31→21:54)
[2021-01-12] MEDS: MELATONIN 5 MG TABLETS PO SCH (21:54)
[2021-01-12] MEDS: THIAMINE HCL 100 MG TABLET (FP) PO SCH (21:54)
[2021-01-12] MEDS: traZODone HCL 50 MG TABLET (FP) PO SCH (21:54)
[2021-01-13] MEDS: FERROUS SO4 325 MG TABLET (FP) PO SCH ×3 (07:10→21:52)
[2021-01-13] MEDS: PRENATAL VITAMINS W/ FOLIC ACID TABLET (FP) PO SCH (10:29)
[2021-01-13] MEDS: NICOTINE 14 MG/24 HOURS TOPICAL PATCH TD SCH (10:29)
[2021-01-13] MEDS: amLODIPine BESYLATE 5 MG TABLET (FP) PO SCH (10:29)
[2021-01-13] MEDS: NICOTINE POLACRILEX 2 MG GUM BUC PRN ×2 (10:30→21:53)
[2021-01-13] MEDS: TOLNAFTATE 1% CREAM 15 GM TUBE TP SCH ×2 (10:30→21:52)
[2021-01-13] MEDS: hydrOXYzine PAMOATE 25 MG CAPSULE (FP) PO PRN ×2 (13:20→21:51)
[2021-01-13] MEDS: MELATONIN 5 MG TABLETS PO SCH (21:51)
[2021-01-13] MEDS: traZODone HCL 50 MG TABLET (FP) PO SCH (21:51)
[2021-01-13] MEDS: THIAMINE HCL 100 MG TABLET (FP) PO SCH (21:51)
[2021-01-14] MEDS: FERROUS SO4 325 MG TABLET (FP) PO SCH ×3 (07:06→21:56)
[2021-01-14] MEDS: PRENATAL VITAMINS W/ FOLIC ACID TABLET (FP) PO SCH (10:32)
[2021-01-14] MEDS: NICOTINE 14 MG/24 HOURS TOPICAL PATCH TD SCH (10:33)
[2021-01-14] MEDS: amLODIPine BESYLATE 5 MG TABLET (FP) PO SCH (10:33)
[2021-01-14] MEDS: hydrOXYzine PAMOATE 25 MG CAPSULE (FP) PO PRN ×3 (10:33→21:58)
[2021-01-14] MEDS: TOLNAFTATE 1% CREAM 15 GM TUBE TP SCH ×2 (10:34→21:57)
[2021-01-14] MEDS: NICOTINE POLACRILEX 2 MG GUM BUC PRN (10:36)
[2021-01-14] MEDS: MELATONIN 5 MG TABLETS PO SCH (21:57)
[2021-01-14] MEDS: traZODone HCL 50 MG TABLET (FP) PO SCH (21:57)
[2021-01-14] MEDS: THIAMINE HCL 100 MG TABLET (FP) PO SCH (21:57)
[2021-01-15] MEDS: FERROUS SO4 325 MG TABLET (FP) PO SCH ×3 (06:34→21:39)
[2021-01-15] MEDS: PRENATAL VITAMINS W/ FOLIC ACID TABLET (FP) PO SCH (10:45)
[2021-01-15] MEDS: NICOTINE 14 MG/24 HOURS TOPICAL PATCH TD SCH (10:45)
[2021-01-15] MEDS: amLODIPine BESYLATE 5 MG TABLET (FP) PO SCH (10:45)
[2021-01-15] MEDS: hydrOXYzine PAMOATE 25 MG CAPSULE (FP) PO PRN ×3 (10:45→21:39)
[2021-01-15] MEDS: TOLNAFTATE 1% CREAM 15 GM TUBE TP SCH ×2 (10:47→21:39)
[2021-01-15] MEDS: NICOTINE POLACRILEX 2 MG GUM BUC PRN (10:48)
[2021-01-15] MEDS: MELATONIN 5 MG TABLETS PO SCH (21:39)
[2021-01-15] MEDS: THIAMINE HCL 100 MG TABLET (FP) PO SCH (21:39)
[2021-01-15] MEDS: traZODone HCL 50 MG TABLET (FP) PO SCH (21:39)
[2021-01-16] MEDS: FERROUS SO4 325 MG TABLET (FP) PO SCH ×3 (06:16→21:39)
[2021-01-16] MEDS: NICOTINE 14 MG/24 HOURS TOPICAL PATCH TD SCH (10:14)
[2021-01-16] MEDS: amLODIPine BESYLATE 5 MG TABLET (FP) PO SCH (10:14)
[2021-01-16] MEDS: PRENATAL VITAMINS W/ FOLIC ACID TABLET (FP) PO SCH (10:14)
[2021-01-16] MEDS: TOLNAFTATE 1% CREAM 15 GM TUBE TP SCH ×2 (10:15→21:39)
[2021-01-16] MEDS: hydrOXYzine PAMOATE 25 MG CAPSULE (FP) PO PRN ×2 (13:26→21:39)
[2021-01-16] MEDS: MELATONIN 5 MG TABLETS PO SCH (21:39)
[2021-01-16] MEDS: traZODone HCL 50 MG TABLET (FP) PO SCH (21:39)
[2021-01-16] MEDS: THIAMINE HCL 100 MG TABLET (FP) PO SCH (21:39)
[2021-01-17] MEDS: FERROUS SO4 325 MG TABLET (FP) PO SCH ×3 (06:49→21:30)
[2021-01-17] MEDS: amLODIPine BESYLATE 5 MG TABLET (FP) PO SCH (10:09)
[2021-01-17] MEDS: PRENATAL VITAMINS W/ FOLIC ACID TABLET (FP) PO SCH (10:09)
[2021-01-17] MEDS: TOLNAFTATE 1% CREAM 15 GM TUBE TP SCH ×2 (10:09→21:32)
[2021-01-17] MEDS: hydrOXYzine PAMOATE 25 MG CAPSULE (FP) PO PRN ×2 (10:09→21:32)
[2021-01-17] MEDS: NICOTINE 14 MG/24 HOURS TOPICAL PATCH TD SCH (10:10)
[2021-01-17] MEDS: NICOTINE POLACRILEX 2 MG GUM BUC PRN (13:35)
[2021-01-17] MEDS: THIAMINE HCL 100 MG TABLET (FP) PO SCH (21:30)
[2021-01-17] MEDS: traZODone HCL 50 MG TABLET (FP) PO SCH (21:30)
[2021-01-17] MEDS: MELATONIN 5 MG TABLETS PO SCH (21:31)
[2021-01-18] MEDS: FERROUS SO4 325 MG TABLET (FP) PO SCH ×3 (06:29→21:22)
[2021-01-18] MEDS: PRENATAL VITAMINS W/ FOLIC ACID TABLET (FP) PO SCH (10:07)
[2021-01-18] MEDS: TOLNAFTATE 1% CREAM 15 GM TUBE TP SCH ×2 (10:08→21:23)
[2021-01-18] MEDS: NICOTINE 14 MG/24 HOURS TOPICAL PATCH TD SCH (10:08)
[2021-01-18] MEDS: hydrOXYzine PAMOATE 25 MG CAPSULE (FP) PO PRN ×2 (10:08→21:22)
[2021-01-18] MEDS: amLODIPine BESYLATE 5 MG TABLET (FP) PO SCH (10:08)
[2021-01-18] MEDS: traZODone HCL 50 MG TABLET (FP) PO SCH (21:22)
[2021-01-18] MEDS: THIAMINE HCL 100 MG TABLET (FP) PO SCH (21:22)
[2021-01-18] MEDS: MELATONIN 5 MG TABLETS PO SCH (21:22)
[2021-01-19] MEDS: FERROUS SO4 325 MG TABLET (FP) PO SCH ×3 (06:32→21:36)
[2021-01-19] MEDS: NICOTINE 14 MG/24 HOURS TOPICAL PATCH TD SCH (10:07)
[2021-01-19] MEDS: PRENATAL VITAMINS W/ FOLIC ACID TABLET (FP) PO SCH (10:07)
[2021-01-19] MEDS: hydrOXYzine PAMOATE 25 MG CAPSULE (FP) PO PRN ×3 (10:07→21:37)
[2021-01-19] MEDS: amLODIPine BESYLATE 5 MG TABLET (FP) PO SCH (10:07)
[2021-01-19] MEDS: TOLNAFTATE 1% CREAM 15 GM TUBE TP SCH ×2 (10:09→21:38)
[2021-01-19] MEDS: traZODone HCL 50 MG TABLET (FP) PO SCH (21:36)
[2021-01-19] MEDS: MELATONIN 5 MG TABLETS PO SCH (21:36)
[2021-01-19] MEDS: THIAMINE HCL 100 MG TABLET (FP) PO SCH (21:36)
[2021-01-20] MEDS: FERROUS SO4 325 MG TABLET (FP) PO SCH ×3 (06:12→22:07)
[2021-01-20] MEDS: amLODIPine BESYLATE 5 MG TABLET (FP) PO SCH (09:51)
[2021-01-20] MEDS: NICOTINE 14 MG/24 HOURS TOPICAL PATCH TD SCH (09:51)
[2021-01-20] MEDS: hydrOXYzine PAMOATE 25 MG CAPSULE (FP) PO PRN ×2 (09:51→22:08)
[2021-01-20] MEDS: PRENATAL VITAMINS W/ FOLIC ACID TABLET (FP) PO SCH (09:51)
[2021-01-20] MEDS: TOLNAFTATE 1% CREAM 15 GM TUBE TP SCH ×2 (09:53→22:07)
[2021-01-20] MEDS: NICOTINE POLACRILEX 2 MG GUM BUC PRN (09:53)
[2021-01-20] MEDS: THIAMINE HCL 100 MG TABLET (FP) PO SCH (22:07)
[2021-01-20] MEDS: traZODone HCL 50 MG TABLET (FP) PO SCH (22:07)
[2021-01-20] MEDS: MELATONIN 5 MG TABLETS PO SCH (22:07)
[2021-01-21] MEDS: FERROUS SO4 325 MG TABLET (FP) PO SCH ×3 (05:59→21:38)
[2021-01-21] MEDS: hydrOXYzine PAMOATE 25 MG CAPSULE (FP) PO PRN ×3 (10:17→21:38)
[2021-01-21] MEDS: amLODIPine BESYLATE 5 MG TABLET (FP) PO SCH (10:17)
[2021-01-21] MEDS: PRENATAL VITAMINS W/ FOLIC ACID TABLET (FP) PO SCH (10:17)
[2021-01-21] MEDS: NICOTINE 14 MG/24 HOURS TOPICAL PATCH TD SCH (10:19)
[2021-01-21] MEDS: TOLNAFTATE 1% CREAM 15 GM TUBE TP SCH ×2 (10:20→21:38)
[2021-01-21] MEDS: MELATONIN 5 MG TABLETS PO SCH (21:37)
[2021-01-21] MEDS: THIAMINE HCL 100 MG TABLET (FP) PO SCH (21:38)
[2021-01-21] MEDS: traZODone HCL 50 MG TABLET (FP) PO SCH (21:38)
[2021-01-22] MEDS: FERROUS SO4 325 MG TABLET (FP) PO SCH ×3 (06:04→21:37)
[2021-01-22] MEDS: PRENATAL VITAMINS W/ FOLIC ACID TABLET (FP) PO SCH (09:55)
[2021-01-22] MEDS: hydrOXYzine PAMOATE 25 MG CAPSULE (FP) PO PRN ×2 (09:56→21:37)
[2021-01-22] MEDS: amLODIPine BESYLATE 5 MG TABLET (FP) PO SCH (09:56)
[2021-01-22] MEDS: TOLNAFTATE 1% CREAM 15 GM TUBE TP SCH ×2 (09:56→21:38)
[2021-01-22] MEDS: NICOTINE 14 MG/24 HOURS TOPICAL PATCH TD SCH (09:57)
[2021-01-22] MEDS: traZODone HCL 50 MG TABLET (FP) PO SCH (21:37)
[2021-01-22] MEDS: MELATONIN 5 MG TABLETS PO SCH (21:37)
[2021-01-22] MEDS: THIAMINE HCL 100 MG TABLET (FP) PO SCH (21:37)
[2021-01-23] MEDS: FERROUS SO4 325 MG TABLET (FP) PO SCH ×3 (06:31→21:32)
[2021-01-23] MEDS: hydrOXYzine PAMOATE 25 MG CAPSULE (FP) PO PRN ×3 (10:42→21:33)
[2021-01-23] MEDS: PRENATAL VITAMINS W/ FOLIC ACID TABLET (FP) PO SCH (10:42)
[2021-01-23] MEDS: amLODIPine BESYLATE 5 MG TABLET (FP) PO SCH (10:43)
[2021-01-23] MEDS: NICOTINE 14 MG/24 HOURS TOPICAL PATCH TD SCH (10:43)
[2021-01-23] MEDS: TOLNAFTATE 1% CREAM 15 GM TUBE TP SCH ×2 (10:44→21:34)
[2021-01-23] MEDS: MELATONIN 5 MG TABLETS PO SCH (21:32)
[2021-01-23] MEDS: THIAMINE HCL 100 MG TABLET (FP) PO SCH (21:32)
[2021-01-23] MEDS: traZODone HCL 50 MG TABLET (FP) PO SCH (21:32)
[2021-01-24] MEDS: FERROUS SO4 325 MG TABLET (FP) PO SCH ×3 (06:44→21:28)
[2021-01-24] MEDS: PRENATAL VITAMINS W/ FOLIC ACID TABLET (FP) PO SCH (10:19)
[2021-01-24] MEDS: amLODIPine BESYLATE 5 MG TABLET (FP) PO SCH (10:19)
[2021-01-24] MEDS: hydrOXYzine PAMOATE 25 MG CAPSULE (FP) PO PRN ×3 (10:19→21:28)
[2021-01-24] MEDS: TOLNAFTATE 1% CREAM 15 GM TUBE TP SCH ×2 (10:20→21:29)
[2021-01-24] MEDS: NICOTINE 14 MG/24 HOURS TOPICAL PATCH TD SCH (10:20)
[2021-01-24] MEDS: traZODone HCL 50 MG TABLET (FP) PO SCH (21:28)
[2021-01-24] MEDS: MELATONIN 5 MG TABLETS PO SCH (21:28)
[2021-01-24] MEDS: THIAMINE HCL 100 MG TABLET (FP) PO SCH (21:28)
[2021-01-25] MEDS: FERROUS SO4 325 MG TABLET (FP) PO SCH ×3 (06:33→21:13)
[2021-01-25] MEDS: amLODIPine BESYLATE 5 MG TABLET (FP) PO SCH (10:19)
[2021-01-25] MEDS: PRENATAL VITAMINS W/ FOLIC ACID TABLET (FP) PO SCH (10:19)
[2021-01-25] MEDS: hydrOXYzine PAMOATE 25 MG CAPSULE (FP) PO PRN ×2 (10:20→21:14)
[2021-01-25] MEDS: NICOTINE 14 MG/24 HOURS TOPICAL PATCH TD SCH (10:20)
[2021-01-25] MEDS: TOLNAFTATE 1% CREAM 15 GM TUBE TP SCH ×2 (10:20→21:44)
[2021-01-25] MEDS: MELATONIN 5 MG TABLETS PO SCH (21:13)
[2021-01-25] MEDS: traZODone HCL 50 MG TABLET (FP) PO SCH (21:13)
[2021-01-25] MEDS: THIAMINE HCL 100 MG TABLET (FP) PO SCH (21:13)
[2021-01-26] MEDS: FERROUS SO4 325 MG TABLET (FP) PO SCH ×3 (06:15→21:20)
[2021-01-26] MEDS: TOLNAFTATE 1% CREAM 15 GM TUBE TP SCH ×2 (09:55→21:32)
[2021-01-26] MEDS: PRENATAL VITAMINS W/ FOLIC ACID TABLET (FP) PO SCH (09:55)
[2021-01-26] MEDS: amLODIPine BESYLATE 5 MG TABLET (FP) PO SCH (09:55)
[2021-01-26] MEDS: NICOTINE 14 MG/24 HOURS TOPICAL PATCH TD SCH (09:56)
[2021-01-26] MEDS: hydrOXYzine PAMOATE 25 MG CAPSULE (FP) PO PRN ×2 (09:56→21:21)
[2021-01-26] MEDS: THIAMINE HCL 100 MG TABLET (FP) PO SCH (21:20)
[2021-01-26] MEDS: traZODone HCL 50 MG TABLET (FP) PO SCH (21:20)
[2021-01-26] MEDS: MELATONIN 5 MG TABLETS PO SCH (21:20)
[2021-01-27] MEDS: FERROUS SO4 325 MG TABLET (FP) PO SCH (06:29)
[2021-01-27 07:16] VITALS: TEMP 98
[2021-01-27] MEDS: PRENATAL VITAMINS W/ FOLIC ACID TABLET (FP) PO SCH (09:57)
[2021-01-27] MEDS: NICOTINE 14 MG/24 HOURS TOPICAL PATCH TD SCH (09:57)
[2021-01-27] MEDS: amLODIPine BESYLATE 5 MG TABLET (FP) PO SCH (09:57)
[2021-01-27] MEDS: hydrOXYzine PAMOATE 25 MG CAPSULE (FP) PO PRN (09:57)
[2021-01-27] MEDS: TOLNAFTATE 1% CREAM 15 GM TUBE TP SCH (09:58)
[2021-01-27 10:29] VITALS: BP 145/93; PULSE 84
== END 2021-01-27 10:05 | disposition home or self-care (01) | DRG 772 ==
LOC: YASAS 14:00 → Y3E 14:01 → Y5N 01-01 16:25
PROVIDERS: ADMIT Allergy & Immunology; ATTEND Allergy & Immunology
PROC: HZ42ZZZ Group Counseling for Substance Abuse Treatment, Cognitive-Behavioral (ICD-10-PCS; principal; 2020-12-30)
DX: F10.20 Alcohol dependence, uncomplicated (principal); F10.24 Alcohol dependence with alcohol-induced mood disorder; F17.210 Nicotine dependence, cigarettes, uncomplicated; F10.282 Alcohol dependence with alcohol-induced sleep disorder; I10 Essential (primary) hypertension; Z56.0 Unemployment, unspecified
CPT/HCPCS: C9803; U0003